=== PATIENT | male | born 1960 | race Caucasian/White ===

== ENCOUNTER 2022-10-08 14:17 | Emergency (ER) | payer OTHER ==
[~2022-10-08] VITALS: Ht 177.8 cm; Wt 81.6 kg
[2022-10-08] MEDS ORDERED: PREDNISONE5 MG PO (14:30)
[2022-10-08] MEDS ORDERED: METHOTREXATE S2.5 M1 PO (14:30)
[2022-10-08 16:26] LABS: BILIRUBIN Negative (Negative); BLOOD Negative (Negative); CLARITY Clear (Clear); COLOR Yellow (Yellow); GLUCOSE Negative (Negative); KETONE Negative (Negative); LEUKO ESTERASE 2+ (Negative); NITRITE Negative (Negative); PH 6.5 (4.5-8.0); SPECIFIC GRAVITY 1.015 (1.001-1.030); UROBILINOGEN 0.2 E.U./dl (0.0-1.0)
[2022-10-08 16:39] LABS: RBC 0-2 rbc/hpf (0-2)
[2022-10-08 16:40] LABS: EPITHELIAL CELLS 21-30
[2022-10-08] MEDS ORDERED: PREDNISONE20 M1 PO (17:24)
[2022-10-08] MEDS ORDERED: METHOCARBAMOL500 M1 PO (17:24)
== END 2022-10-08 17:59 | disposition home or self-care (01) ==
LOC: ED 14:17
PROVIDERS: Physician Assistant
DX: S30.0XXA Contusion of lower back and pelvis, initial encounter (principal); Z88.8 Allergy status to other drugs, medicaments and biological substances; W08.XXXA Fall from other furniture, initial encounter; Y93.89 Activity, other specified; Y92.89 Other specified places as the place of occurrence of the external cause; Y99.8 Other external cause status

== ENCOUNTER 2022-12-06 09:44 | Emergency (ER) | payer OTHER ==
[~2022-12-06] VITALS: Ht 180.3 cm; Wt 83.0 kg
[~2022-12-06 09:44] MED LIST: METHOCARBAMOL500 M1 PO; METHOTREXATE S2.5 M1 PO; PREDNISONE20 M1 PO; PREDNISONE5 MG PO
[2022-12-06 10:23] LABS: BILIRUBIN Negative (Negative); BLOOD Negative (Negative); CLARITY Clear (Clear); COLOR Yellow (Yellow); GLUCOSE Negative (Negative); KETONE Negative (Negative); LEUKO ESTERASE Negative (Negative); NITRITE Negative (Negative)
[2022-12-06 10:37] LABS: BASO % 0.7 % (0.0-1.0); EOS # 0.1 10*3/uL (0.0-0.4); EOS % 1.3 % (1.0-4.0); HEMATOCRIT 40.4 % (42.0-52.0); LYMPH # 0.6 10*3/uL (1.3-4.4); LYMPH % 11.5 % (27.0-41.0); MEAN CELL VOLUME 91.4 fl (80.0-94.0); MEAN CORPUSCULAR HGB 28.3 pg (27.0-31.0); MEAN CORPUSCULAR HGB CONC 30.9 g/dl (33.0-37.0); MONO # 0.5 10*3/uL (0.1-1.0); MONO % 9.1 % (3.0-9.0); NEUT # 4.3 10*3/uL (2.3-7.9); NEUT % 77.2 % (47.0-73.0); PLATELET COUNT AUTOMATED 235 10*3/uL (130-400); RED BLOOD COUNT 4.42 10*6/uL (4.50-5.90); RED CELL DISTRI WIDTH 18.6 % (0-14.5); WHITE BLOOD COUNT 5.6 10*3/uL (4.8-10.8)
[2022-12-06 10:42] LABS: MUCOUS 2+
[2022-12-06 10:49] LABS: ACT PARTIAL THROMBO TIME 26.3 SECONDS (20.0-32.1); INTERNATIONAL NORM RATIO 1.1 (2.0-3.5)
[2022-12-06 10:53] LABS: ALKALINE PHOSPHATASE 72 U/L (46-116); BUN 14 mg/dl (9-23); CHLORIDE 104 mmol/L (98-107); LIPASE 30 U/L (12-53); SGPT/ALT 29 U/L (10-49); TOTAL PROTEIN 7.2 gm/dL (6.0-8.0)
[2022-12-06] MEDS ORDERED: CIPRO500 MG PO (11:56)
== END 2022-12-06 12:20 | disposition home or self-care (01) ==
LOC: ED 09:44
PROVIDERS: Emergency Medicine
DX: R36.1 Hematospermia (principal)

== ENCOUNTER → 2022-12-25 | Outpatient (CLI) | payer OTHER ==
[~2022-12-25] MED LIST changes: +CIPRO500 MG PO
[2022-12-25 13:07] LABS: BUN 17 mg/dl (9-23)
== END | disposition home or self-care (01) ==
LOC: LAB 12:34 → CT 13:00
PROVIDERS: ATTEND Urology
DX: K76.0 Fatty (change of) liver, not elsewhere classified (principal); K44.9 Diaphragmatic hernia without obstruction or gangrene; K57.30 Diverticulosis of large intestine without perforation or abscess without bleeding; R36.1 Hematospermia

== ENCOUNTER 2023-06-22 15:39 | Emergency (ER) | payer OTHER ==
[~2023-06-22] VITALS: Ht 177.8 cm; Wt 86.2 kg
[2023-06-22 16:57] LABS: BASO % 0.7 % (0.0-1.0); EOS # 0.3 10*3/uL (0.0-0.4); EOS % 6.4 % (1.0-4.0); HEMATOCRIT 37.2 % (42.0-52.0); LYMPH # 0.8 10*3/uL (1.3-4.4); LYMPH % 18.8 % (27.0-41.0); MEAN CELL VOLUME 94.4 fl (80.0-94.0); MEAN CORPUSCULAR HGB 31.7 pg (27.0-31.0); MEAN CORPUSCULAR HGB CONC 33.6 g/dl (33.0-37.0); MEAN PLATELET VOLUME 8.7 fl (9.6-12.3); MONO # 0.6 10*3/uL (0.1-1.0); MONO % 13.3 % (3.0-9.0); NEUT # 2.6 10*3/uL (2.3-7.9); NEUT % 60.6 % (47.0-73.0); PLATELET COUNT AUTOMATED 214 10*3/uL (130-400); RED BLOOD COUNT 3.94 10*6/uL (4.50-5.90); RED CELL DISTRI WIDTH 13.2 % (0-14.5); WHITE BLOOD COUNT 4.2 10*3/uL (4.8-10.8)
[2023-06-22 17:20] LABS: ALKALINE PHOSPHATASE 74 U/L (46-116); BUN 13 mg/dl (9-23); CHLORIDE 106 mmol/L (98-107); POTASSIUM 4.1 mmol/L (3.4-5.1); SGPT/ALT 34 U/L (10-49); TOTAL PROTEIN 6.6 gm/dL (6.0-8.0)
[2023-06-22] MEDS ORDERED: PREDNISONE20 M1 PO (18:08)
== END 2023-06-22 19:14 | disposition home or self-care (01) ==
LOC: ED 15:39
PROVIDERS: Nurse Practitioner Family
DX: J98.01 Acute bronchospasm (principal); J44.9 Chronic obstructive pulmonary disease, unspecified; M19.90 Unspecified osteoarthritis, unspecified site; Z88.8 Allergy status to other drugs, medicaments and biological substances

== ENCOUNTER 2024-04-19 13:43 | Emergency (ER) | payer OTHER ==
[~2024-04-19] VITALS: Ht 180.3 cm; Wt 89.8 kg
[2024-04-19] MEDS ORDERED: PLAQUENIL200 MG PO (13:54)
[2024-04-19] MEDS ORDERED: OMEPRAZOLE40 MG PO (13:55)
[2024-04-19 14:30] LABS: BASO % 0.9 % (0.0-1.0); EOS # 0.1 10*3/uL (0.0-0.4); EOS % 2.6 % (1.0-4.0); HEMATOCRIT 40.2 % (42.0-52.0); LYMPH # 0.8 10*3/uL (1.3-4.4); LYMPH % 17.2 % (27.0-41.0); MEAN CELL VOLUME 96.9 fl (80.0-94.0); MEAN CORPUSCULAR HGB 31.6 pg (27.0-31.0); MEAN CORPUSCULAR HGB CONC 32.6 g/dl (33.0-37.0); MEAN PLATELET VOLUME 8.8 fl (9.6-12.3); MONO # 0.6 10*3/uL (0.1-1.0); MONO % 13.4 % (3.0-9.0); NEUT % 65.7 % (47.0-73.0); PLATELET COUNT AUTOMATED 255 10*3/uL (130-400); RED BLOOD COUNT 4.15 10*6/uL (4.50-5.90); RED CELL DISTRI WIDTH 12.5 % (0-14.5); WHITE BLOOD COUNT 4.5 10*3/uL (4.8-10.8)
[2024-04-19 14:53] LABS: ALKALINE PHOSPHATASE 83 U/L (46-116); BUN 13 mg/dl (9-23); CHLORIDE 104 mmol/L (98-107); POTASSIUM 4.2 mmol/L (3.4-5.1); SGPT/ALT 41 U/L (5-49); TOTAL PROTEIN 7.3 gm/dL (6.0-8.0)
== END 2024-04-19 16:35 | disposition home or self-care (01) ==
LOC: ED 13:43
PROVIDERS: Internal Medicine
DX: N64.9 Disorder of breast, unspecified (principal); M19.90 Unspecified osteoarthritis, unspecified site; J44.9 Chronic obstructive pulmonary disease, unspecified; Z88.8 Allergy status to other drugs, medicaments and biological substances

== ENCOUNTER 2024-04-27 13:41 | Inpatient (IN) | payer OTHER ==
[~2024-04-27] VITALS: Ht 180.3 cm; Wt 90.7 kg
[~2024-04-27 13:41] MED LIST changes: +OMEPRAZOLE40 MG PO; +PLAQUENIL200 MG PO
[2024-04-27 13:48] VITALS: BP 94/71
[2024-04-27 16:28] LABS: BASO % 0.2 % (0.0-1.0); EOS % 0.1 % (1.0-4.0); HEMATOCRIT 33.1 % (42.0-52.0); LYMPH # 0.6 10*3/uL (1.3-4.4); LYMPH % 5.8 % (27.0-41.0); MEAN CELL VOLUME 97.9 fl (80.0-94.0); MEAN CORPUSCULAR HGB 31.7 pg (27.0-31.0); MEAN CORPUSCULAR HGB CONC 32.3 g/dl (33.0-37.0); MEAN PLATELET VOLUME 9.1 fl (9.6-12.3); MONO # 1.4 10*3/uL (0.1-1.0); MONO % 12.7 % (3.0-9.0); NEUT # 8.7 10*3/uL (2.3-7.9); NEUT % 80.7 % (47.0-73.0); PLATELET COUNT AUTOMATED 180 10*3/uL (130-400); RED BLOOD COUNT 3.38 10*6/uL (4.50-5.90); RED CELL DISTRI WIDTH 13.2 % (0-14.5); WHITE BLOOD COUNT 10.8 10*3/uL (4.8-10.8)
[2024-04-27 16:44] LABS: ACT PARTIAL THROMBO TIME 32.1 SECONDS (20.0-32.1)
[2024-04-27 16:49] LABS: ALKALINE PHOSPHATASE 63 U/L (46-116); BUN 22 mg/dl (9-23); CHLORIDE 99 mmol/L (98-107); POTASSIUM 3.6 mmol/L (3.4-5.1); SGPT/ALT 23 U/L (5-49); TOTAL PROTEIN 6.7 gm/dL (6.0-8.0)
[2024-04-27] MEDS ORDERED: methylPREDNISolone sod succ 40 MG VIAL IV ONE (17:00)
[2024-04-27] MEDS ORDERED: Albuterol Sulf/Ipratropium 3 ML VIAL NEB ONE (17:00)
[2024-04-27] MEDS ORDERED: ACETAMINOPHEN 650 MG SUPP R PRN (18:25)
[2024-04-27] MEDS ORDERED: ACETAMINOPHEN 325 MG TAB PO PRN (18:25)
[2024-04-27] MEDS ORDERED: Magnesium Hydroxide 30 ML UDC PO PRN (18:25)
[2024-04-27] MEDS ORDERED: BISACODYL 5 MG TAB PO PRN (18:25)
[2024-04-27] MEDS ORDERED: TEMAZEPAM 15 MG CAP PO PRN (18:25)
[2024-04-27] MEDS ORDERED: BISACODYL 10 MG SUPP R PRN (18:25)
[2024-04-27] MEDS ORDERED: methylPREDNISolone sod succ 125 MG VIAL IV ONE (20:00)
[2024-04-27] MEDS ORDERED: Albuterol Sulf/Ipratropium 3 ML VIAL NEB SCH (20:00)
[2024-04-27 21:25] VITALS: BP 114/43
[2024-04-28 00:28] VITALS: BP 118/70
[2024-04-28] MEDS ORDERED: Pantoprazole Sodium 40 MG TAB PO SCH (06:00)
[2024-04-28 06:32] VITALS: BP 110/62
[2024-04-28 07:00] LABS: HEMATOCRIT 33.4 % (42.0-52.0); MEAN CELL VOLUME 97.7 fl (80.0-94.0); MEAN CORPUSCULAR HGB 31.6 pg (27.0-31.0); MEAN CORPUSCULAR HGB CONC 32.3 g/dl (33.0-37.0); MEAN PLATELET VOLUME 9.5 fl (9.6-12.3); PLATELET COUNT AUTOMATED 177 10*3/uL (130-400); RED BLOOD COUNT 3.42 10*6/uL (4.50-5.90); RED CELL DISTRI WIDTH 12.9 % (0-14.5); WHITE BLOOD COUNT 8.9 10*3/uL (4.8-10.8)
[2024-04-28 07:10] LABS: MANUAL DIFF REFLEX YES
[2024-04-28 07:27] LABS: PLATELET SUFFICIENCY NORMAL (NORMAL); POLYCHROMASIA SLIGHT; TOTAL CELLS COUNTED 100 #CELLS
[2024-04-28 08:00] LABS: ALKALINE PHOSPHATASE 64 U/L (46-116); BUN 20 mg/dl (9-23); CHLORIDE 100 mmol/L (98-107); CHOLESTEROL 136 mg/dL (<200); FREE T4 0.89 ng/dl (0.89-1.76); LDL CHOLESTEROL 70 mg/dL (9-159); POTASSIUM 3.9 mmol/L (3.4-5.1); SGPT/ALT 23 U/L (5-49); TOTAL PROTEIN 6.9 gm/dL (6.0-8.0); TRIGLYCERIDES 57 mg/dl (<150)
[2024-04-28] MEDS ORDERED: Doxycycline Hyclate 100 MG CAP PO SCH (08:50)
[2024-04-28] MEDS ORDERED: Enoxaparin Sodium 40 MG/0.4 ML SYR SC SCH (10:00)
[2024-04-28] MEDS ORDERED: Ceftriaxone Sodium 10 ML IV SCH (10:00)
[2024-04-28 12:09] VITALS: BP 128/52
[2024-04-28] MEDS ORDERED: OMNICEF300 MG PO (15:19)
[2024-04-28] MEDS ORDERED: VIBRAMYCIN HYC100 MG PO (15:19)
[2024-04-28] MEDS ORDERED: Ipratropium Brom3 ML INH (15:29)
[2024-04-28 15:30] VITALS: BP 124/71
[2024-04-28] MEDS ORDERED: methylPREDNISolone sod succ 40 MG VIAL IV SCH (18:00)
== END 2024-04-28 15:40 | disposition home or self-care (01) | DRG 871 ==
LOC: ED 13:41 → EDHOLD 17:40 → 4E 04-28 15:10 → EDHOLD 04-28 15:40
PROVIDERS: Emergency Medicine; Student in an Organized Health Care Education/Training Program; ADMIT Internal Medicine; ATTEND Internal Medicine
DX: A41.9 Sepsis, unspecified organism (principal); J15.69 Pneumonia due to other Gram-negative bacteria; J96.01 Acute respiratory failure with hypoxia; E87.1 Hypo-osmolality and hyponatremia; R65.20 Severe sepsis without septic shock; D53.9 Nutritional anemia, unspecified; R73.9 Hyperglycemia, unspecified; E53.9 Vitamin B deficiency, unspecified; E83.39 Other disorders of phosphorus metabolism; J32.9 Chronic sinusitis, unspecified; M15.0 Primary generalized (osteo)arthritis; L40.50 Arthropathic psoriasis, unspecified; M06.9 Rheumatoid arthritis, unspecified; M54.9 Dorsalgia, unspecified; M32.8 Other forms of systemic lupus erythematosus; G89.29 Other chronic pain; Z96.641 Presence of right artificial hip joint; Z82.0 Family history of epilepsy and other diseases of the nervous system; Z88.8 Allergy status to other drugs, medicaments and biological substances; Z79.51 Long term (current) use of inhaled steroids; Z79.899 Other long term (current) drug therapy; Z80.52 Family history of malignant neoplasm of bladder; Z79.2 Long term (current) use of antibiotics

== ENCOUNTER → 2024-05-26 | Outpatient (CLI) | payer OTHER ==
[~2024-05-26] MED LIST changes: +Ipratropium Brom3 ML INH; +OMNICEF300 MG PO; +VIBRAMYCIN HYC100 MG PO
== END | disposition home or self-care (01) ==
LOC: MAMMO 04-28 09:00 → US 04-28 09:30 → MAMMO 09:49
PROVIDERS: ATTEND Nurse Practitioner Family
DX: N64.4 Mastodynia (principal); R92.8 Other abnormal and inconclusive findings on diagnostic imaging of breast

== ENCOUNTER 2024-07-30 17:51 | Emergency (ER) | payer OTHER ==
[~2024-07-30] VITALS: Ht 180.3 cm; Wt 89.8 kg
[2024-07-30] MEDS ORDERED: SODIUM CHLORIDE 0.9% 1,000 ML IV ONE (18:10)
[2024-07-30 18:14] LABS: BASO % 0.4 % (0.0-1.0); EOS # 0.1 10*3/uL (0.0-0.4); EOS % 2.7 % (1.0-4.0); HEMATOCRIT 39.5 % (42.0-52.0); MEAN CELL VOLUME 93.2 fl (80.0-94.0); MEAN CORPUSCULAR HGB 30.9 pg (27.0-31.0); MEAN CORPUSCULAR HGB CONC 33.2 g/dl (33.0-37.0); MEAN PLATELET VOLUME 8.8 fl (9.6-12.3); MONO # 0.6 10*3/uL (0.1-1.0); MONO % 12.3 % (3.0-9.0); NEUT # 3.5 10*3/uL (2.3-7.9); NEUT % 67.1 % (47.0-73.0); PLATELET COUNT AUTOMATED 204 10*3/uL (130-400); RED BLOOD COUNT 4.24 10*6/uL (4.50-5.90); RED CELL DISTRI WIDTH 13.1 % (0-14.5); WHITE BLOOD COUNT 5.2 10*3/uL (4.8-10.8)
[2024-07-30] MEDS ORDERED: ANUSOL HC30 GM PO (18:29)
[2024-07-30 18:56] LABS: BUN 16 mg/dl (9-23); CHLORIDE 103 mmol/L (98-107); POTASSIUM 3.9 mmol/L (3.4-5.1)
== END 2024-07-30 19:12 | disposition home or self-care (01) ==
LOC: ED 17:51
PROVIDERS: Emergency Medicine
DX: K64.4 Residual hemorrhoidal skin tags (principal); K62.5 Hemorrhage of anus and rectum; J44.9 Chronic obstructive pulmonary disease, unspecified; M19.90 Unspecified osteoarthritis, unspecified site; Z88.8 Allergy status to other drugs, medicaments and biological substances; Z98.890 Other specified postprocedural states; Z87.891 Personal history of nicotine dependence